=== PATIENT | female | born 1950 | race Caucasian/White ===

== ENCOUNTER → 2023-11-11 | Outpatient (REF) | payer MEDICARE ==
[2023-11-11 17:46] LABS: CREATININE, URINE 102.4 MG/DL; MAU/CREAT RATIO 5.8 MCG/MG (0.0-30.0)
[2023-11-11 17:55] LABS: BASO % 0.6 % (0.0-1.0); EOS # 0.2 10^3/uL (0.0-0.5); EOS % 3.6 % (0.0-3.0); HEMATOCRIT 42.2 % (36.0-47.0); HEMOGLOBIN 13.5 g/dl (12.0-15.5); LYMPH # 0.4 10^3/uL (1.5-5.0); LYMPH % 7.9 % (24.0-44.0); MEAN CORPUSCULAR HEMOGLOBIN 31.2 pg (27.0-33.0); MEAN CORPUSCULAR VOLUME 97.5 fl (80.0-96.0); MONO # 0.3 10^3/uL (0.0-0.8); MONO % 7.1 % (2.0-8.0); NEUTROPHILS # 3.8 10^3/uL (1.5-8.5); NEUTROPHILS % 80.4 % (36.0-66.0); PLATELET COUNT, AUTOMATED 203 10^3/uL (150-450); RED BLOOD COUNT 4.33 10^6/uL (4.00-5.40); WHITE BLOOD COUNT 4.7 10^3/uL (4.0-10.0)
[2023-11-11 18:21] LABS: HEMOGLOBIN A1c 5.7 % (4.0-6.0)
[2023-11-11 18:30] LABS: ALBUMIN 3.3 G/DL (3.2-5.2); BILIRUBIN,TOTAL 0.5 MG/DL (0.3-1.2); CALCIUM LEVEL 9.1 MG/DL (8.3-10.6); CHOLESTEROL RISK RATIO 3.55 (<5); CREATININE FOR GFR 1.46 MG/DL (0.55-1.30); GLOMERULAR FILTRATION RATE 37.2 (>39); HDL CHOLESTEROL 60.5 MG/DL (>40); LDL CHOLESTEROL 126.5 MG/DL (<100); NON-HDL-C 154.5 MG/DL; POTASSIUM SERUM 4.1 MMOL/L (3.5-5.1); TOTAL PROTEIN 6.3 G/DL (5.7-8.2)
[2023-11-11 18:32] LABS: THYROID STIMULATING HORMONE 1.052 uIU/ML (0.55-4.78)
== END ==
LOC: M LAB REF 16:15
PROVIDERS: ATTEND Physician Assistant
DX: I10 Essential (primary) hypertension (principal); E78.2 Mixed hyperlipidemia; E66.9 Obesity, unspecified; I50.9 Heart failure, unspecified

== ENCOUNTER → 2023-12-14 | Outpatient (CLI) | payer MEDICARE | LOC: M RAD 13:12 | PROVIDERS: ATTEND Physician Assistant | DX: J44.9 Chronic obstructive pulmonary disease, unspecified (principal) ==

== ENCOUNTER → 2024-01-08 | Outpatient (CLI) | payer MEDICARE | LOC: M RAD 11:27 | PROVIDERS: ATTEND Physician Assistant | DX: M16.11 Unilateral primary osteoarthritis, right hip (principal) ==

== ENCOUNTER → 2024-02-15 | Outpatient (CLI) | payer MEDICARE | LOC: M RAD 08:45 | PROVIDERS: ATTEND Internal Medicine Pulmonary Disease | DX: R91.8 Other nonspecific abnormal finding of lung field (principal) ==

== ENCOUNTER 2024-02-17 09:52 | Outpatient (RCR) | payer MEDICARE | END 2024-02-26 | LOC: M PT 09:52 | PROVIDERS: ATTEND Physician Assistant | DX: R26.89 Other abnormalities of gait and mobility (principal) ==

== ENCOUNTER 2024-03-24 14:07 | Outpatient (RCR) | payer MEDICARE | END 2024-03-27 | LOC: M PT 14:07 | PROVIDERS: ATTEND Physician Assistant | DX: R26.89 Other abnormalities of gait and mobility (principal) ==

== ENCOUNTER 2024-04-26 12:45 | Outpatient (RCR) | payer MEDICARE | END 2024-04-27 | LOC: M PT 12:45 | PROVIDERS: ATTEND Physician Assistant | DX: R26.89 Other abnormalities of gait and mobility (principal) ==

== ENCOUNTER → 2024-05-25 | Outpatient (CLI) | payer MEDICARE | LOC: M SOG 08:05 | PROVIDERS: ATTEND Orthopaedic Surgery | DX: M25.561 Pain in right knee (principal); M25.562 Pain in left knee ==

== ENCOUNTER → 2024-06-07 | Outpatient (REF) | payer MEDICARE ==
[2024-06-08 12:55] LABS: BASO % 0.6 % (0.0-1.0); EOS # 0.1 10^3/uL (0.0-0.5); EOS % 1.9 % (0.0-3.0); HEMOGLOBIN 13.8 g/dl (12.0-15.5); LYMPH # 0.4 10^3/uL (1.5-5.0); MEAN CORPUSCULAR HEMOGLOBIN 30.2 pg (27.0-33.0); MEAN CORPUSCULAR HGB CONC 32.1 g/dl (32.0-36.5); MEAN CORPUSCULAR VOLUME 94.1 fl (80.0-96.0); MONO # 0.6 10^3/uL (0.0-0.8); MONO % 10.6 % (2.0-8.0); NEUTROPHILS # 4.1 10^3/uL (1.5-8.5); NEUTROPHILS % 78.5 % (36.0-66.0); PLATELET COUNT, AUTOMATED 210 10^3/uL (150-450); RED BLOOD COUNT 4.57 10^6/uL (4.00-5.40); WHITE BLOOD COUNT 5.3 10^3/uL (4.0-10.0)
[2024-06-08 13:16] LABS: ALBUMIN 3.6 G/DL (3.2-5.2); BILIRUBIN,TOTAL 0.7 MG/DL (0.3-1.2); CALCIUM LEVEL 10.3 MG/DL (8.3-10.6); CREATININE FOR GFR 1.55 MG/DL (0.55-1.30); GLOMERULAR FILTRATION RATE 34.7 (>39); TOTAL PROTEIN 6.8 G/DL (5.7-8.2)
[2024-06-08 13:55] LABS: CREATININE, URINE 68.6 MG/DL; MALB URINE SIEMENS < 3.0 MG/L; MAU/CREAT RATIO 4.3 MCG/MG (0.0-30.0)
== END ==
LOC: M LAB REF 12:35
PROVIDERS: ATTEND Physician Assistant
DX: R42 Dizziness and giddiness (principal)

== ENCOUNTER → 2024-08-18 | Outpatient (CLI) | payer MEDICARE | LOC: M PLAIMG 13:06 | PROVIDERS: ATTEND Internal Medicine Pulmonary Disease | DX: R91.8 Other nonspecific abnormal finding of lung field (principal) ==

== ENCOUNTER 2024-09-26 16:50 | Emergency (ER) | payer MEDICARE ==
[~2024-09-26] VITALS: Ht 154.9 cm; Wt 97.7 kg
[2024-09-26 18:09] VITALS: BP 127/60; TEMP 97.1; O2SAT 94
== END 2024-09-26 18:15 | disposition home or self-care (01) ==
LOC: M ED 16:50
DX: S00.93XA Contusion of unspecified part of head, initial encounter (principal); S16.1XXA Strain of muscle, fascia and tendon at neck level, initial encounter; Y92.019 Unspecified place in single-family (private) house as the place of occurrence of the external cause; Y93.9 Activity, unspecified; Y99.9 Unspecified external cause status; W01.198A Fall on same level from slipping, tripping and stumbling with subsequent striking against other object, initial encounter; Z88.5 Allergy status to narcotic agent

== ENCOUNTER 2025-01-28 22:52 | Emergency (ER) | payer MEDICARE ==
[~2025-01-28] VITALS: Ht 154.9 cm; Wt 97.6 kg
[2025-01-29] MEDS: METHOCARBAMOL 1,000 MG/10 ML VIAL IV ONE (03:23)
[2025-01-29] MEDS: methylPREDNISolone 125MG 2ML VIAL IV ONE (03:23)
[2025-01-29] MEDS ORDERED: METH-1165 PO (05:02)
[2025-01-29] MEDS ORDERED: PRED20TA PO (05:02)
[2025-01-29 05:13] VITALS: BP 139/58; TEMP 96.6; O2SAT 95
== END 2025-01-29 05:20 | disposition home or self-care (01) ==
LOC: M ED 22:52
DX: M54.50 Low back pain, unspecified (principal); I48.91 Unspecified atrial fibrillation; I50.22 Chronic systolic (congestive) heart failure; E11.9 Type 2 diabetes mellitus without complications; N18.32 Chronic kidney disease, stage 3b; Z88.5 Allergy status to narcotic agent; Z79.52 Long term (current) use of systemic steroids; Z79.899 Other long term (current) drug therapy
CPT/HCPCS: 72131; 96374; 99284; J2800; J2919

== ENCOUNTER → 2025-05-01 | Outpatient (CLI) | payer MEDICARE ==
[~2025-05-01] MED LIST: ELIQ5TAB PO; FAMO40TA3 PO; FARX1TAB3 PO; FLUO40CA PO; FURO20TA2 PO; HOLTER MONITOR XX; METH-1165 PO; METO50TA7 PO; MONT10TA97 PO; PIOG1TAB55 PO; PRED20TA PO; SPIR12.9 IH
[2025-05-01 11:36] LABS: APPEARANCE, URINE CLEAR (CLEAR); BACTERIA, URINE AUTO NEGATIVE (NEGATIVE); BILIRUBIN, URINE AUTO NEGATIVE (NEGATIVE); BLOOD, URINE BLOOD NEGATIVE (NEGATIVE); GLUCOSE, URINE (UA) AUTO 3+ mg/dL (NEGATIVE); KETONE, URINE AUTO NEGATIVE (NEGATIVE); LEUKOCYTE ESTERASE, URINE AUTO TRACE (NEGATIVE); NITRITE, URINE AUTO NEGATIVE (NEGATIVE); PROTEIN, URINE AUTO NEGATIVE (NEGATIVE); RBC, URINE AUTO 0 /HPF (0-3); SPECIFIC GRAVITY URINE AUTO 1.017 (1.002-1.035); SQUAMOUS EPITHELIAL CELL UR AU 1 /HPF (0-6); UROBILINOGEN, URINE AUTO 0.2 mg/dL (0.0-2.0); WBC, URINE AUTO 7 /HPF (0-3)
[2025-05-01 11:38] LABS: BASO # 0.0 10^3/uL (0.0-0.2); BASO % 0.7 % (0.0-1.0); EOS # 0.3 10^3/uL (0.0-0.5); EOS % 6.0 % (0.0-3.0); LYMPH # 0.5 10^3/uL (1.5-5.0); LYMPH % 10.8 % (24.0-44.0); MONO # 0.5 10^3/uL (0.0-0.8); MONO % 10.2 % (2.0-8.0); NEUTROPHILS # 3.3 10^3/uL (1.5-8.5); NEUTROPHILS % 72.1 % (36.0-66.0); PLATELET COUNT, AUTOMATED 184 10^3/uL (150-450)
[2025-05-01 11:49] LABS: INR 0.99
[2025-05-01 12:01] LABS: CALCIUM LEVEL 9.4 MG/DL (8.3-10.6); CARBON DIOXIDE LEVEL 35.0 MMOL/L (20-31); CHLORIDE LEVEL 100.0 MMOL/L (98-107); CREATININE FOR GFR 1.58 MG/DL (0.55-1.30); GLOMERULAR FILTRATION RATE 33.7 (>39); POTASSIUM SERUM 4.3 MMOL/L (3.5-5.1); SODIUM LEVEL 145.0 MMOL/L (136-145)
== END ==
LOC: M RAD 10:53 → M LAB 10:53
PROVIDERS: ATTEND Physician Assistant
DX: M48.062 Spinal stenosis, lumbar region with neurogenic claudication (principal); Z79.01 Long term (current) use of anticoagulants

== ENCOUNTER → 2025-05-02 | Outpatient (CLI) | payer MEDICARE | LOC: M EKG 13:40 | PROVIDERS: ATTEND Physician Assistant | DX: M48.062 Spinal stenosis, lumbar region with neurogenic claudication (principal); I45.10 Unspecified right bundle-branch block; I44.4 Left anterior fascicular block ==

== ENCOUNTER 2025-05-16 06:12 | Observation (INO) | payer MEDICARE ==
[~2025-05-16] VITALS: Ht 154.9 cm; Wt 107.5 kg
[~2025-05-16 06:12] MED LIST changes: +ADVA230A INH; +ALBU2.5V10 INH; +ALBU8.5H INH; +ATOR80TA59 PO; +CALC315T2 PO; +MAGN400C PO; +NEUR100C PO; +POTA10CA70 PO; +ROPI0.5T33 PO; -SPIR12.9 IH; +SPIR12.9 INH; +TRAM50TA2 PO
[2025-05-16] MEDS ORDERED: LR 1,000 ML IV SCH (06:50)
[2025-05-16] MEDS ORDERED: ROCURONIUM BROMIDE 50MG/5ML VIAL As Ordered ONE (07:11)
[2025-05-16] MEDS ORDERED: LIDOCAINE 2% 100 MG/5 ML SDV (FOR ANES.) As Ordered ONE (07:11)
[2025-05-16] MEDS ORDERED: MIDAZOLAM INJ 2 MG/2 ML VIAL As Ordered ONE (07:12)
[2025-05-16] MEDS: ceFAZolin SODIUM 2 GM in DEXTROSE 5% (D5W) ADV/MINI-BAG 50 ML IV ONE (08:30)
[2025-05-16] MEDS ORDERED: HOME MED LIST COMPLETE! XX SCH (08:55)
[2025-05-16] MEDS ORDERED: HYDROmorphone HCL 2 MG/ML 1 ML VIAL As Ordered ONE (10:45)
[2025-05-16] MEDS ORDERED: ONDANSETRON 4MG/2ML VIAL As Ordered ONE (10:52)
[2025-05-16] MEDS ORDERED: SUGAMMADEX SODIUM 500 MG/5 ML VIAL As Ordered ONE (10:52)
[2025-05-16] MEDS ORDERED: KETOROLAC 30 MG/ML 1 ML VIAL As Ordered ONE (10:53)
[2025-05-16] MEDS ORDERED: ACETAMINOPHEN 1000MG/100ML IV BAG As Ordered ONE (10:54)
[2025-05-16] MEDS: LR 1,000 ML IV SCH (12:35)
[2025-05-16] MEDS ORDERED: ONDANSETRON 4MG/2ML VIAL IV PRN ×3 (12:35→14:55)
[2025-05-16] MEDS ORDERED: DEXTROSE 50% 50 ML SYRINGE IV PRN (12:55)
[2025-05-16] MEDS ORDERED: GLUCAGON INJ 1 MG VIAL SC PRN (12:55)
[2025-05-16] MEDS ORDERED: CYCLOBENZAPRINE 5 MG TABLET PO PRN (12:55)
[2025-05-16] MEDS ORDERED: ALBUTEROL SULFATE 2.5 MG/0.5 ML INH CONCENTRATE NEB SOLN INH PRN (13:05)
[2025-05-16] MEDS ORDERED: ALBUTEROL 90 MCG/ACT 8 GM HFA INHALER INH PRN (13:05)
[2025-05-16] MEDS: HYDROMORPHONE HCL 0.5 MG/0.5 ML SYRINGE IV PRN (13:46)
[2025-05-16] MEDS ORDERED: HYDROMORPHONE HCL 0.5 MG/0.5 ML SYRINGE IV PRN (14:50)
[2025-05-16] MEDS: HYDROMORPHONE HCL 0.5 MG/0.5 ML SYRINGE IV ONE (15:15)
[2025-05-16 16:31] VITALS: BP 103/40; O2SAT 97
[2025-05-16] MEDS: INSULIN LISPRO (NovoLOG) PER UNIT SC SCH ×2 (17:30→21:00)
[2025-05-16] MEDS: GLUCOSE 4 GM CHEW PO PRN (18:27)
[2025-05-16] MEDS: ACETAMINOPHEN 325 MG TAB PO SCH (18:38)
[2025-05-16] MEDS: ceFAZolin SODIUM 2 GM in DEXTROSE 5% (D5W) ADV/MINI-BAG 50 ML IV SCH (18:38)
[2025-05-16] MEDS: NS (Normal Saline) 0.9% 1,000 ML IV ONE (18:39)
[2025-05-16] MEDS: GABAPENTIN 100 MG CAP PO SCH (18:39)
[2025-05-16 19:13] VITALS: BP 102/51; TEMP 97.5; O2SAT 97
[2025-05-16] MEDS: ADVAIR HFA 230/21 MCG INHALER INH SCH (19:23)
[2025-05-16] MEDS: METOPROLOL TART 50 MG TAB PO SCH (21:00)
[2025-05-16] MEDS: FAMOTIDINE 20 MG TAB PO SCH (21:08)
[2025-05-16] MEDS: MONTELUKAST 10 MG TAB PO SCH (21:08)
[2025-05-16] MEDS: SENNA 8.6 MG TAB PO SCH (21:08)
[2025-05-16] MEDS: DOCUSATE SODIUM 100 MG CAPSULE PO SCH (21:08)
[2025-05-16] MEDS: ATORVASTATIN 20 MG TAB PO SCH (21:08)
[2025-05-16 23:12] VITALS: BP 107/53; TEMP 97.1; O2SAT 95
[2025-05-17 03:08] VITALS: BP 123/57; TEMP 97.7; O2SAT 96
[2025-05-17 05:43] LABS: PLATELET COUNT, AUTOMATED 177 10^3/uL (150-450)
[2025-05-17 06:18] LABS: CALCIUM LEVEL 8.6 MG/DL (8.3-10.6); CARBON DIOXIDE LEVEL 29.0 MMOL/L (20-31); CHLORIDE LEVEL 104.0 MMOL/L (98-107); CREATININE FOR GFR 1.49 MG/DL (0.55-1.30); GLOMERULAR FILTRATION RATE 36.2 (>39); POTASSIUM SERUM 4.6 MMOL/L (3.5-5.1); SODIUM LEVEL 143.0 MMOL/L (136-145)
[2025-05-17 07:13] VITALS: BP 116/53; TEMP 98.4; O2SAT 94
[2025-05-17] MEDS: TIOTROPIUM BROM 2.5MCG/ACTUATION 4GM INH INH SCH (07:27)
[2025-05-17] MEDS: POTASSIUM CHLORIDE 10MEQ SR TABLET PO SCH (08:11)
[2025-05-17] MEDS: FLUoxetine 20 MG CAP PO SCH (08:11)
[2025-05-17 11:28] VITALS: BP 134/57; TEMP 98.6; O2SAT 91
[2025-05-17 14:25] VITALS: BP 111/53
[2025-05-17 14:46] VITALS: BP 111/53
[2025-05-17] MEDS: METOPROLOL TART 50 MG TAB PO ONE (14:46)
[2025-05-17 15:33] VITALS: BP 117/56; TEMP 100.5; O2SAT 92
[2025-05-17] MEDS ORDERED: OXYC-517 PO (16:51)
[2025-05-17] MEDS ORDERED: COLA100C5 PO (16:51)
[2025-05-17] MEDS ORDERED: ACET32TAB PO (16:51)
[2025-05-17] MEDS ORDERED: SENN18TA PO (16:51)
[2025-05-17] MEDS ORDERED: HEPARIN SOD 5000 UNITS/ML 1 ML VIAL/SYRINGE SQ SCH (21:00)
== END 2025-05-17 18:57 | disposition home or self-care (01) ==
LOC: M SDC 06:12 → M RR INP 12:52 → M PCU 16:25
PROVIDERS: ADMIT Internal Medicine; ATTEND Internal Medicine
DX: M48.062 Spinal stenosis, lumbar region with neurogenic claudication (principal); R50.9 Fever, unspecified; I48.91 Unspecified atrial fibrillation; I27.20 Pulmonary hypertension, unspecified; J44.9 Chronic obstructive pulmonary disease, unspecified; E11.22 Type 2 diabetes mellitus with diabetic chronic kidney disease; N18.30 Chronic kidney disease, stage 3 unspecified; Z87.891 Personal history of nicotine dependence; Z88.5 Allergy status to narcotic agent; Z91.048 Other nonmedicinal substance allergy status; Z79.899 Other long term (current) drug therapy; Z79.01 Long term (current) use of anticoagulants; Z79.51 Long term (current) use of inhaled steroids
CPT/HCPCS: 36415; 63047; 63048; 72110; 76000; 80048; 85027; 94640; 96365; 96366; 96376; 97161; 97165; 97530; G0378; J0131; J0665; J0666; J0690; J1171; J1885; J2250; J2405; J2765; J3010